=== PATIENT | male | born 1985 | race Hispanic/Latino ===

== ENCOUNTER 2020-08-18 09:05 | Emergency (ER) | payer SELFPAY ==
[~2020-08-18] VITALS: Ht 165.1 cm; Wt 72.7 kg
[~2020-08-18 09:05] MED LIST: BACTRIM DS1 TAB PO; NO HOME MEDS
[2020-08-18 11:23] LABS: URINE BILIRUBIN - DIPSTICK NEGATIVE (NEGATIVE); URINE BLOOD DIPSTICK NEGATIVE (NEGATIVE); URINE COLOR YELLOW; URINE GLUCOSE - DIPSTICK NEGATIVE (NEGATIVE); URINE KETONE NEGATIVE (NEGATIVE); URINE LEUK ESTERASE NEGATIVE (NEGATIVE); URINE NITRITE - DIPSTICK NEGATIVE (Negative); URINE PH 5.5 (4.5-8.0); URINE PROTEIN - DIPSTICK NEGATIVE (NEG-TRACE)
[2020-08-18 12:15] VITALS: BP 130/84
== END 2020-08-18 12:15 | disposition home or self-care (01) | DRG 730 ==
LOC: ED 09:05
PROVIDERS: Emergency Medicine
DX: N43.3 Hydrocele, unspecified (principal); F17.200 Nicotine dependence, unspecified, uncomplicated